=== PATIENT | male | born 1955 | race Caucasian/White ===

== ENCOUNTER 2021-02-26 07:52 | Emergency (ER) | payer MEDICARE ==
[~2021-02-26] VITALS: Ht 167.6 cm; Wt 108.9 kg
--- NOTE | 2021-02-26 07:53 | NUR ---
Patient to ER bed 1 to gown for evaluation. Side rails up. Report given to Lyn THOMPSON.
[2021-02-26 07:59] VITALS: BP_SYST 177
--- NOTE | 2021-02-26 08:01 | NUR ---
DR FALCON AT BEDSIDE FOR EXAM
--- NOTE | 2021-02-26 08:06 | NUR ---
PT [place] FROM [place] [facility], REPORTS HE WAS DRIVING AND SUDDENLY FELT DIZZIY AND LIGHTHEADED, HE IMMEDIATELY STOPPEED DRIVING AND CALLED 911. PT AAOX3, IN NAD. RESP EVEN AND UNLBAORED, ON RA@99%, DENIES ANY CP OR SOB. SKIN W/D/I.PT CURRENTLY STATES "I FEEL MUCH BETTER, NO LONGER DIZZY" DENIES ANY N/V/D, NO ABD PAIN. LARGE, SOFT, NT TO PALPATION. NO GROSS EDEMA NOTED. EKG DONE, BLOOD DRAWN, SL INSERTED. PT ON MONITOR. PT TALKING TO FAMILY ON PHONE. SFETY PRECAUTIONS IN PLACE, WILL CONT TO MONITOR.
[2021-02-26 08:14] LABS: BASOPHILS % (AUTO) 0.6 % (0.0-2.0); EOSINOPHILS # (AUTO) 0.1 K/uL (0.0-0.4); EOSINOPHILS % (AUTO) 2.7 % (0.0-4.0); HEMATOCRIT 35.4 % (36-54); HEMOGLOBIN 11.9 g/dL (14.0-18.0); LYMPHOCYTES # (AUTO) 0.9 K/uL (1.0-5.5); LYMPHOCYTES % (AUTO) 24.3 % (20.5-51.5); MEAN CORPUSCULAR HEMOGLOBIN 30 pg (27-31); MEAN CORPUSCULAR HGB CONC 34 % (32-36); MEAN CORPUSCULAR VOLUME 88 fL (79.0-98.0); MONOCYTES # (AUTO) 0.2 K/uL (0.0-1.0); MONOCYTES % (AUTO) 5.7 % (1.7-9.3); NEUTROPHILS # (AUTO) 2.5 K/uL (1.8-7.7); NEUTROPHILS % (AUTO) 66.7 % (40.0-70.0); PLATELET COUNT (AUTO) 110 K/uL (130-430); RED BLOOD CELL COUNT(AUTO) 4.02 MIL/uL (4.2-6.2); RED CELL DISTRIBUTION WIDTH 15.4 % (9.0-15.0); WHITE BLOOD COUNT (AUTO) 3.8 K/uL (4.8-10.8)
--- NOTE | 2021-02-26 08:16 | NUR ---
PT TAKEN TO XRAY
[2021-02-26 08:28] LABS: ANION GAP 10 (5-15); CALCIUM 8.9 mg/dL (8.4-11.0); CHLORIDE 97 mmol/L (98-107); CREATININE 0.98 mg/dL (0.55-1.30); GLUCOSE 268 mg/dL (70-99); POTASSIUM 3.5 mmol/L (3.5-5.1); SODIUM SERUM 134 mmol/L (136-145); UREA NITROGEN, BLOOD 18 mg/dL (8-21)
[2021-02-26 08:33] LABS: ALANINE AMINOTRANSFERASE 41 U/L (12-78); ASPARTATE AMINOTRANSFERASE 22 U/L (10-37); TOTAL BILIRUBIN 0.8 mg/dL (0.0-1.0)
[2021-02-26 08:36] LABS: GFR AFRICAN AMERICAN 98 mL/min (>90)
[2021-02-26 08:40] LABS: ACETONE, SERUM NEGATIVE (NEGATIVE)
[2021-02-26 08:42] LABS: INR 1.1 (0.80-1.20); PROTHROMBIN TIME 11.2 SECS (9.5-12.5)
--- NOTE | 2021-02-26 09:11 | NUR ---
NO ACUTE CHANGES IN CONDITION, PT IN NAD. DENIES ANY CP OR SOB.
[2021-02-26] MEDS ORDERED: ASPI-862 PO (09:12)
[2021-02-26] MEDS ORDERED: ASPIRIN 325 MG TABLET PO ONE (09:30)
--- NOTE | 2021-02-26 09:30 | NUR ---
DC WTH ACI, PT INFORMED TO LIGHTING ADVISER ASA AT PHARM, VERBALIZED UNDERSTANDING. PT RPEORTS FEELING MUCH BETTER, VSS. IN NAD. RESP EVEN AND UMLABORED, ON RA @98%. SL DC'D. WALKED OUT WITH STABLE GAIT, FAMILY WAS CALLED FOR A RIDE HOME. PT VERBALIZED UNDERSTANIDNG TO F/U WITH PCP ON MONDAY.
[2021-02-26 09:33] VITALS: BP_SYST 159
== END 2021-02-26 09:30 | disposition home or self-care (01) ==
LOC: SED 07:52
DX: R55 Syncope and collapse (principal); E11.9 Type 2 diabetes mellitus without complications
CPT/HCPCS: 36415; 70450-TC; 71045; 76376; 80053; 82009; 84484; 85025; 85610-TC; 85730-TC; 93005; 99285